=== PATIENT | female | born 1995 | race Caucasian/White ===

== ENCOUNTER → 2017-03-31 | Outpatient (REF) | payer OTHER ==
[~2017-03-31] MED LIST: FLOM5CAP PO; IBUP200C PO; NITR100C2; NORC1TAB4 PO
== END ==
LOC: M SFHCLERA 09:30
PROVIDERS: ATTEND Physician Assistant
DX: R30.0 Dysuria (principal)

== ENCOUNTER 2017-04-01 07:40 | Emergency (ER) | payer BC, OTHER ==
[~2017-04-01] VITALS: Ht 160 cm; Wt 73.6 kg
[2017-04-01 08:09] VITALS: BP_SYST 119
[2017-04-01] MEDS ORDERED: IBUP200C10 PO (08:13)
[2017-04-01] MEDS ORDERED: NITR100C2 (08:13)
[2017-04-01 08:58] LABS: CONTROL LINE UCG INT CTR LINE PRESENT
[2017-04-01] MEDS ORDERED: KETOROLAC 30 MG/ML VIAL (J1885) IV ONE (09:00)
[2017-04-01] MEDS ORDERED: ONDANSETRON 4MG/2ML VIAL (J2405) IV ONE (09:00)
[2017-04-01] MEDS ORDERED: NS 1,000 ML IV ONE (09:00)
[2017-04-01 09:12] LABS: BASO % 0.4 % (0.0-1.0); EOS # 0.1 K/mm3 (0.0-0.50); EOS % 0.7 % (0.0-3.0); LARGE UNSTAINED CELL % 0.4 % (0.0-4.0); LYMPH # 1.3 K/mm3 (1.5-6.5); LYMPH % 14.9 % (24.0-44.0); MEAN CORPUSCULAR HEMOGLOBIN 31.7 pg (27.0-33.0); MEAN CORPUSCULAR HGB CONC 33.9 g/dl (32.0-36.5); MEAN CORPUSCULAR VOLUME 93.7 fl (80.0-96.0); MONO # 0.5 K/mm3 (0.0-0.8); MONO % 6.1 % (0.0-5.0); NEUTROPHILS # 6.6 K/mm3 (1.8-7.7); NEUTROPHILS % 77.5 % (36.0-66.0); PLATELET COUNT, AUTOMATED 161 k/mm3 (150-450); RED CELL DISTRIBUTION WIDTH 12.9 % (11.5-14.5); WHITE BLOOD COUNT 8.6 K/mm3 (4.0-10.0)
[2017-04-01 09:21] LABS: ANION GAP 4 MEQ/L (8-16); BLOOD UREA NITROGEN 11 MG/DL (7-18); CALCIUM LEVEL 8.5 MG/DL (8.5-10.1); CARBON DIOXIDE LEVEL 26 MEQ/L (21-32); CHLORIDE LEVEL 106 MEQ/L (98-107); CREATININE FOR GFR 0.84 MG/DL (0.55-1.02); GLOMERULAR FILTRATION RATE > 60.0 (>60); GLUCOSE, FASTING 105 MG/DL (70-105); POTASSIUM SERUM 3.4 MEQ/L (3.5-5.1); SODIUM LEVEL 136 MEQ/L (136-145)
--- NOTE | 2017-04-01 10:21 | REP ---
CT ABDOMEN AND PELVIS WITHOUT IV CONTRAST: CT abdomen and pelvis performed without oral or IV contrast. Sagittal and coronal reconstruction images are performed. The visualized lung bases demonstrate no infiltrate. The liver, spleen, adrenals and pancreas are grossly unremarkable. Gallbladder is grossly unremarkable. Right kidney is grossly unremarkable. There is mild left hydroureteronephrosis caused by a 3 mm stone at the left ureterovesical junction. 2 mm intrarenal calculus is seen in the mid to lower left renal collecting system. There is no abdominal aortic aneurysm. I see no adenopathy or free air. No bowel wall thickening is seen. There is a tiny amount of free fluid in the pelvis which is likely physiologic in nature. No gross pelvic mass is seen. IMPRESSION: There is a 3 mm stone at the left ureterovesical junction causing mild left hydroureteronephrosis. Signed by Roberto Malcolm MD 04/01/2017 05:01 P
[2017-04-01] MEDS ORDERED: FLOM5CAP PO (10:37)
[2017-04-01] MEDS ORDERED: NORC1TAB4 PO (10:37)
[2017-04-01 10:43] VITALS: BP_DIAS 74
== END 2017-04-01 10:47 | disposition home or self-care (01) ==
LOC: M ED 08:38
DX: N13.2 Hydronephrosis with renal and ureteral calculous obstruction (principal); R10.32 Left lower quadrant pain; R11.0 Nausea; Z79.899 Other long term (current) drug therapy
CPT/HCPCS: 36415; 74176; 80048; 81001; 81025; 84703; 85025; 87086; 96374; 96375; 99284; J1885; J2405

== ENCOUNTER → 2017-04-10 | Outpatient (REF) | payer OTHER ==
[~2017-04-10] MED LIST changes: -IBUP200C PO; +IBUP200C10 PO
== END ==
LOC: M SFHCLERA 15:20
PROVIDERS: ATTEND Physician Assistant
DX: N20.0 Calculus of kidney (principal)

== ENCOUNTER → 2017-09-03 | Outpatient (REF) | payer OTHER | LOC: M SFHCLERA 10:29 | PROVIDERS: ATTEND Nurse Practitioner Family | DX: J02.9 Acute pharyngitis, unspecified (principal) ==

== ENCOUNTER → 2018-06-06 | Outpatient (CLI) | payer BC, OTHER | LOC: M LRY 11:47 | DX: M25.571 Pain in right ankle and joints of right foot (principal) | CPT/HCPCS: 73610 ==

== ENCOUNTER → 2018-11-27 | Outpatient (REF) | payer OTHER ==
[~2018-11-27] MED LIST changes: +FLOM0.4C39 PO; -FLOM5CAP PO; -IBUP200C10 PO; +IBUP200C25 PO
[2018-11-27 13:47] LABS: HEMATOCRIT 42.3 % (36.0-47.0); HEMOGLOBIN 13.8 g/dl (12.0-15.5); MEAN CORPUSCULAR HEMOGLOBIN 30.4 pg (27.0-33.0); MEAN CORPUSCULAR HGB CONC 32.6 g/dl (32.0-36.5); MEAN CORPUSCULAR VOLUME 93.2 fl (80.0-96.0); PLATELET COUNT, AUTOMATED 192 10^3/uL (150-450); RED BLOOD COUNT 4.54 10^6/uL (4.00-5.40); WHITE BLOOD COUNT 8.8 10^3/uL (4.0-10.0)
[2018-11-27 14:08] LABS: HCG, SERUM QUANTITATIVE 17100 MIU/ML; RUBELLA IgG QUALITATIVE IMMUNE (IMMUNE)
[2018-11-27 14:35] LABS: HIV 1&2 SCREEN CENTAUR NEGATIVE (NEGATIVE)
== END ==
LOC: M LAB REF 12:32
PROVIDERS: ATTEND Nurse Practitioner Women's Health
DX: Z32.01 Encounter for pregnancy test, result positive (principal); O36.80X0 Pregnancy with inconclusive fetal viability, not applicable or unspecified; Z3A.00 Weeks of gestation of pregnancy not specified

== ENCOUNTER → 2019-01-29 | Outpatient (REF) | payer OTHER ==
[~2019-01-29] MED LIST changes: -NORC1TAB4 PO; +NORC1TAB7 PO
== END ==
LOC: M SFHCLERA 15:04
PROVIDERS: ATTEND Physician Assistant
DX: R10.9 Unspecified abdominal pain (principal)

== ENCOUNTER 2019-02-12 12:57 | Observation (INO) | payer BC, OTHER ==
[~2019-02-12] VITALS: Ht 165.1 cm; Wt 77.2 kg
[2019-02-12] MEDS ORDERED: MULTTAB20 PO (13:06)
[2019-02-12] MEDS ORDERED: ACETAMINOPHEN TAB 650MG DOSE (2X325MG) PO ONE (13:30)
[2019-02-12 13:50] LABS: BASO % 0.1 % (0.0-1.0); EOS % 0.2 % (0.0-3.0); HEMATOCRIT 39.4 % (36.0-47.0); LYMPH # 1.7 10^3/uL (1.5-6.5); LYMPH % 16.2 % (24.0-44.0); MONO # 0.7 10^3/uL (0.0-0.8); MONO % 6.7 % (0.0-5.0); NEUTROPHILS # 8.2 10^3/uL (1.8-7.7); NEUTROPHILS % 76.5 % (36.0-66.0); PLATELET COUNT, AUTOMATED 164 10^3/uL (150-450); RED BLOOD COUNT 4.19 10^6/uL (4.00-5.40); WHITE BLOOD COUNT 10.7 10^3/uL (4.0-10.0)
[2019-02-12 14:26] LABS: ALT/SGPT 13 U/L (12-78); BILIRUBIN,DIRECT < 0.1 MG/DL (0.0-0.2); BILIRUBIN,TOTAL 0.3 MG/DL (0.2-1.0); BLOOD UREA NITROGEN 6 MG/DL (7-18); CALCIUM LEVEL 8.1 MG/DL (8.5-10.1); CARBON DIOXIDE LEVEL 23 MEQ/L (21-32); CHLORIDE LEVEL 109 MEQ/L (98-107); CREATININE FOR GFR 0.61 MG/DL (0.55-1.30); GLOMERULAR FILTRATION RATE > 60.0 (>60); GLUCOSE, FASTING 94 MG/DL (70-100); LIPASE 80 U/L (73-393); POTASSIUM SERUM 3.5 MEQ/L (3.5-5.1); SODIUM LEVEL 138 MEQ/L (136-145); TOTAL PROTEIN 6.4 GM/DL (6.4-8.2)
[2019-02-12] MEDS ORDERED: NS 1,000 ML IV ONE (14:45)
--- NOTE | 2019-02-12 15:21 | REP ---
RENAL ULTRASOUND: Real-time sonographic evaluation of kidneys performed. Kidneys are normal in size and echotexture, right kidney measuring 11.6 x 4.3 x 3.9 cm and left kidney 11.9 x 4.4 x 4.6 cm. There is mild left hydronephrosis. There is no right hydronephrosis. Possible 4 mm calculus is seen in the lower pole of the left kidney. No other abnormalities are seen. Urinary bladder is empty. IMPRESSION: Mild left hydronephrosis. Possible 4 mm intrarenal calculus lower pole left kidney. Electronically Signed by Roberto Malcolm MD 02/13/2019 02:54 P
[2019-02-12] MEDS ORDERED: PROMETHAZINE 25 MG SUPP PR ONE (15:30)
[2019-02-12] MEDS: ACETAMINOPHEN TAB 650MG DOSE (2X325MG) PO ONE ×2 (15:30→15:51)
[2019-02-12] MEDS ORDERED: AMPICILLIN SOD 2 GM in D5W 50 ML IV ONE (15:30)
--- NOTE | 2019-02-12 15:30 | REP ---
OB ULTRASOUND: Real-time sonographic evaluation of the gravid uterus is performed utilizing transabdominal technique. There is a single living intrauterine gestation, estimated gestational age 16 weeks 4 days based on LMP, EDC 07/26/2019. Today's measurements indicate appropriate growth. BPD 37 mm = 17 weeks 3 days, 79th percentile HC 136 mm = 17 weeks 0 days, 66th percentile AC 118 mm = 17 weeks, 4 days, 75th percentile FL 21 mm = 16 weeks 3 days, 43rd percentile HC/AC ratio 1.15, within normal range. Estimated weight 178 grams, 62nd percentile. Cervix is closed and measures 3.1 cm in length. heart rate 162 beats per minute. position is variable. Placenta posterior with no previa or abruption. Amniotic fluid within normal limits. No maternal adnexal region abnormality is seen. There appears to be a synechiae in the left uterine fundal region. Electronically Signed by Roberto Malcolm MD 02/13/2019 02:54 P
[2019-02-12] MEDS ORDERED: ACETAMINOPHEN SUSP DYE FREE 160 MG/5 ML UDC PO ONE (16:45)
[2019-02-12 18:33] VITALS: BP 139/75
[2019-02-12] MEDS: PERCOCET 5MG/325MG TAB PO PRN (18:39)
[2019-02-12] MEDS: NS 1,000 ML IV SCH ×2 (18:59→23:50)
[2019-02-12] MEDS: cefTRIAXone SOD 1 GM in D5W MINI-BAG PLUS 50 ML IV SCH (19:38)
[2019-02-12 20:00] VITALS: BP 105/54
--- NOTE | 2019-02-12 20:23 | HPEPDOC ---
[facility] Medical History & Physical Date of Admission February 12, 2019 History and Physical CHIEF COMPLAINT: Bleeding and pain @ 16w4d gestation HISTORY OF PRESENT ILLNESS: Woke this am with abdominal discomfort and cramping. Found blood in toilet. JULIAN 07/26/19. Unable to tolerate fluids throughout the day despite IV hydration and antiemetics. PAST MEDICAL HISTORY: 1. Renal calculi PAST SURGICAL HISTORY: 1. Tonsillectomy. 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 REVIEW OF SYSTEMS: CONSTITUTIONAL: Otherwise healthy HEENT: No complaints CARDIOVASCULAR: No complaints RESPIRATORY: Easy GASTROINTESTINAL: Nausea, vomiting today GENITOURINARY: SIUP @ 16+4. Reports history renal calculi SKIN: Intact MUSCULOSKELETAL: No complaints NEUROLOGICAL: Intact PSYCHIATRIC: Appropriate ENDOCRINE: Negative HOME MEDICATIONS: Please see below. PHYSICAL EXAMINATION: VITAL SIGNS: Temperature 97.3, pulse 89, respiratory rate 16, blood pressure 105/54, pulse oximetry 98% on room air. GENERAL APPEARANCE: Appears uncomfortable, resting in bed. HEENT: WNL CARDIOVASCULAR: HRR, normotensive LUNGS: Clear, respirations easy ABDOMEN: Soft. LLQ discomfort MUSCULOSKELETAL: Equal strength and motion EXTREMITIES: WNL NEUROLOGICAL: Intact PSYCHIATRIC: Appropriate LABORATORY DATA: See below. IMAGING: OB sono shows SIUP EGA 16w4d. FH 162. EFW 178gm, 62%. Posterior placenta, no previa or abruption. Normal fluid Renal scan shows mild left hydronephrosis with possible 4mm intrarenal calculus lower pole left kidney MICROBIOLOGY: Please see below. ASSESSMENT: Renal calculi, r/o pyelonephritis . PLAN: 1. Observation status 2: IV hydration with antibiotic coverage 3: Management of nausea, vomiting and pain 4. Strain urine Vital Signs Vital Signs Date Time Temp Pulse Resp B/P (MAP) Pulse Ox O2 Delivery O2 Flow Rate FiO2 02/12/19 20:00 97.3 89 16 105/54 (71) 98 02/12/19 16:01 Room Air Laboratory Data Labs 24H Laboratory Tests 2 02/12/19 13:29: Immature Granulocyte % (Auto) 0.3, White Blood Count 10.7H, Red Blood Count 4.19, Hemoglobin 13.0, Hematocrit 39.4, Mean Corpuscular Volume 94.0, Mean Corpuscular Hemoglobin 31.0, Mean Corpuscular Hemoglobin Concent 33.0, Red Cell Distribution Width 13.2, Platelet Count 164, Neutrophils (%) (Auto) 76.5H, Lymphocytes (%) (Auto) 16.2L, Monocytes (%) (Auto) 6.7H, Eosinophils (%) (Auto) 0.2, Basophils (%) (Auto) 0.1, Neutrophils # (Auto) 8.2H, Lymphocytes # (Auto) 1.7, Monocytes # (Auto) 0.7, Eosinophils # (Auto) 0.0, Basophils # (Auto) 0.0, Nucleated Red Blood Cells % (auto) 0.0 02/12/19 13:31: Urine Color REDH, Urine Appearance CLOUDYH, Urine pH 6.0, Urine Specific [place] 1.019, Urine Protein 2+H, Urine Glucose (UA) NEGATIVE, Urine Ketones TRACEH, Urine Blood 3+H, Urine Nitrite NEGATIVE, Urine Bilirubin NEGATIVE, Urine Urobilinogen 0.2, Urine Leukocyte Esterase NEGATIVE, Urine WBC (Auto) TNTCH, Urine RBC (Auto) TNTCH, Urine Hyaline Casts (Auto) 0, Urine Bacteria (Auto) NEGATIVE, Urine Squamous Epithelial Cells 6, Urine Mucus (Auto) SMALL, Urine Sperm (Auto) 02/12/19 13:39: Anion Gap 6L, Glomerular Filtration Rate > 60.0, Calcium Level 8.1L, Aspartate Amino Transf (AST/SGOT) 12, Alanine Aminotransferase (ALT/SGPT) 13, Alkaline Phosphatase 62, Total Bilirubin 0.3, Direct Bilirubin < 0.1, Total Protein 6.4, Albumin 3.0L, Albumin/Globulin Ratio 0.88L, Lipase 80 CBC/BMP Laboratory Tests 02/12/19 13:29 Red Blood Count 4.19, Mean Corpuscular Volume 94.0, Mean Corpuscular Hemoglobin 31.0, Mean Corpuscular Hemoglobin Concent 33.0, Red Cell Distribution Width 13.2, Neutrophils (%) (Auto) 76.5 H, Lymphocytes (%) (Auto) 16.2 L, Monocytes (%) (Auto) 6.7 H, Eosinophils (%) (Auto) 0.2, Basophils (%) (Auto) 0.1, Neutrophils # (Auto) 8.2 H, Lymphocytes # (Auto) 1.7, Monocytes # (Auto) 0.7, Eosinophils # (Auto) 0.0, Basophils # (Auto) 0.0 02/12/19 13:39 Microbiology Microbiology 02/12/19 Urine Culture, Received Pending Home Medications Scheduled No122/Iron/Folic Acid ( Multi Tablet) 1 Each Tablet, 1 TAB PO DAILY Allergies Coded Allergies: No Known Allergies (Unverified , 04/01/17) A-FIB/CHADSVASC A-FIB History Current/History of A-Fib/PAF?: No Valentina Spangler CNM February 12, 2019 20:12
[2019-02-12] MEDS: ONDANSETRON 4MG/2ML VIAL (J2405) IV PRN (23:50)
[2019-02-13] VITALS: BP 115/70
[2019-02-13] MEDS: NS 1,000 ML IV SCH ×4 (04:30→18:35)
[2019-02-13 07:12] LABS: BASO % 0.2 % (0.0-1.0); EOS % 0.1 % (0.0-3.0); HEMATOCRIT 32.4 % (36.0-47.0); LYMPH # 1.8 10^3/uL (1.5-6.5); LYMPH % 17.3 % (24.0-44.0); MEAN CORPUSCULAR HEMOGLOBIN 30.1 pg (27.0-33.0); MEAN CORPUSCULAR HGB CONC 32.1 g/dl (32.0-36.5); MEAN CORPUSCULAR VOLUME 93.9 fl (80.0-96.0); MONO # 0.8 10^3/uL (0.0-0.8); MONO % 7.5 % (0.0-5.0); NEUTROPHILS # 7.9 10^3/uL (1.8-7.7); NEUTROPHILS % 74.5 % (36.0-66.0); PLATELET COUNT, AUTOMATED 139 10^3/uL (150-450); RED BLOOD COUNT 3.45 10^6/uL (4.00-5.40); WHITE BLOOD COUNT 10.6 10^3/uL (4.0-10.0)
[2019-02-13 07:26] LABS: HEMOGLOBIN 10.4 g/dl (12.0-15.5)
[2019-02-13 07:44] LABS: ALBUMIN 2.3 GM/DL (3.2-5.2); ALT/SGPT 10 U/L (12-78); BILIRUBIN,TOTAL 0.3 MG/DL (0.2-1.0); BLOOD UREA NITROGEN 4 MG/DL (7-18); CALCIUM LEVEL 7.6 MG/DL (8.5-10.1); CARBON DIOXIDE LEVEL 24 MEQ/L (21-32); CHLORIDE LEVEL 113 MEQ/L (98-107); GLOMERULAR FILTRATION RATE > 60.0 (>60); GLUCOSE, FASTING 80 MG/DL (70-100); POTASSIUM SERUM 3.6 MEQ/L (3.5-5.1); SODIUM LEVEL 142 MEQ/L (136-145); TOTAL PROTEIN 4.7 GM/DL (6.4-8.2)
[2019-02-13 08:00] VITALS: BP 109/64
[2019-02-13] MEDS: ACETAMINOPHEN TAB 650MG DOSE (2X325MG) PO PRN (08:10)
[2019-02-13] MEDS: PERCOCET 5MG/325MG TAB PO PRN (08:48)
--- NOTE | 2019-02-13 10:23 | NUR ---
Progress note S: left flank pain comes intermittently. Currently comfortable. O: CW=669/70 P=80 Tc=97.6 Tm=99.8 NAD Abd: NT, gravid FHT: + by bedside doppler ext: NT A/P 23 yo at 16+ weeks with left nephrolithiasis, ans suspected pyelonephritis Continue Ceftriaxone Urine culture pending pain management as needed Can consult urology if condition doesn't resolve with conservative measures Jovan Hanson MD
[2019-02-13 16:00] VITALS: BP 122/63
[2019-02-13 20:00] VITALS: BP 119/59
[2019-02-13] MEDS: cefTRIAXone SOD 1 GM in D5W MINI-BAG PLUS 50 ML IV SCH (20:26)
[2019-02-13] MEDS: ONDANSETRON 4MG/2ML VIAL (J2405) IV PRN (20:28)
[2019-02-13] MEDS: DOCUSATE SODIUM 100 MG CAP PO SCH (22:00)
[2019-02-14] VITALS: BP 117/69
[2019-02-14] MEDS: ACETAMINOPHEN TAB 650MG DOSE (2X325MG) PO PRN ×2 (00:38→08:17)
[2019-02-14] MEDS: NS 1,000 ML IV SCH ×2 (00:38→05:18)
[2019-02-14 08:14] VITALS: BP 117/63
[2019-02-14] MEDS: DOCUSATE SODIUM 100 MG CAP PO SCH (08:16)
--- NOTE | 2019-02-14 09:33 | NUR ---
Progress note S: No pain overnight O: DI=379/63 P=76 T=99.2 NAD Abd: NT, gravid no CVA tenderness urine culture negative A/P 23 yo at 16 weeks with symptomatic nephrolithiasis, possible pyelonephritis Plan discharge today Continue antibiotic for possible pyelonephritis Rx Percocet in case renal pain occurs [place] 02/23 as scheduled Jovan Hanson MD
[2019-02-14] MEDS ORDERED: OXYC1TAB23 PO (09:46)
[2019-02-14] MEDS ORDERED: BACT800T5 PO (09:49)
--- NOTE | 2019-02-15 07:56 | DSES ---
DATE OF ADMISSION: 02/12/2019 DATE OF DISCHARGE: 02/14/2019 HISTORY: 23-year-old at 16 and 4/7 weeks gestation who presented to the emergency room (ER) with abdominal discomfort and cramping. She found blood in the toilet. She has had vomiting and was not able to tolerate fluids throughout the day. She had pain over the area of her left flank as well. Her medical history is significant for history of kidney stones. Her care is through [facility] at [facility]. HOSPITAL COURSE: The patient was evaluated in the emergency room at [facility]. She was diagnosed with left renal stone on ultrasound. She did not have significant hydronephrosis. Her pain was extreme and she was unable to keep down oral hydration. Decision was made to admit her for pain management as well as antiemetics. She was given IV fluids and pain management. Her pain gradually improved spontaneously. She was able to tolerate oral intake. She was treated with IV Rocephin for possible pyelonephritis at the same time. Her condition continued to improve. On hospital day #3, she was deemed stable for discharge. ADMISSION DIAGNOSES: 16 plus weeks. Symptomatic nephrolithiasis. Possible left pyelonephritis. DISCHARGE DIAGNOSES: 16 plus weeks. Symptomatic nephrolithiasis. Possible left pyelonephritis. DISPOSITION: The patient will have pain management at home in case the pain recurs. She will be treated with oral Keflex at home to finish a course of antibiotics. She will followup with [facility] on 02/23/2019 as scheduled. She will call if symptoms worsen.
== END 2019-02-14 11:20 | disposition home or self-care (01) ==
LOC: M ED 12:57 → M ED INP 17:48 → M PED 18:20
PROVIDERS: ADMIT Advanced Practice Midwife; ATTEND Advanced Practice Midwife
DX: O26.832 Pregnancy related renal disease, second trimester (principal); N20.0 Calculus of kidney; O23.02 Infections of kidney in pregnancy, second trimester; N10 Acute pyelonephritis; Z3A.16 16 weeks gestation of pregnancy
CPT/HCPCS: 36415; 76775; 76811; 80048; 80053; 80076; 81001; 83690; 85025; 86850; 86900; 86901; 87086; 96361; 96365; 96374; 96375; 96376; 99284; J0696; J2405

== ENCOUNTER → 2019-07-01 | Outpatient (REF) | payer BC, OTHER ==
[~2019-07-01] MED LIST changes: +BACT800T5 PO; +MULTTAB20 PO; +OXYC1TAB23 PO
== END ==
LOC: M LAB REF 12:34
PROVIDERS: ATTEND Nurse Practitioner Women's Health
DX: Z36.85 Encounter for antenatal screening for Streptococcus B (principal)

== ENCOUNTER 2019-07-03 13:30 | Outpatient (CLI) | payer BC, OTHER ==
[~2019-07-03] VITALS: Ht 162.6 cm; Wt 92.4 kg
[2019-07-03 14:03] VITALS: BP 122/77
[2019-07-03 14:21] VITALS: BP 131/74
[2019-07-03 14:37] VITALS: BP 124/72
[2019-07-03 14:51] VITALS: BP 130/83
[2019-07-03 15:06] VITALS: BP 129/77
== END 2019-07-03 15:25 | disposition home or self-care (01) ==
LOC: M LDO 13:30
PROVIDERS: ATTEND Specialist
DX: O26.853 Spotting complicating pregnancy, third trimester (principal); O26.893 Other specified pregnancy related conditions, third trimester; R03.0 Elevated blood-pressure reading, without diagnosis of hypertension; Z3A.36 36 weeks gestation of pregnancy
CPT/HCPCS: 59025; G0378; G0463

== ENCOUNTER → 2019-07-16 | Outpatient (REF) | payer OTHER | LOC: M LAB REF 12:47 | PROVIDERS: ATTEND Nurse Practitioner Women's Health | DX: Z34.03 Encounter for supervision of normal first pregnancy, third trimester (principal); Z3A.00 Weeks of gestation of pregnancy not specified ==

== ENCOUNTER 2019-07-17 04:03 | Inpatient (IN) | payer BC, OTHER ==
[2019-07-17] VITALS (20 sets, daily range): BP systolic 110–165; BP diastolic 67–98
[~2019-07-17] VITALS: Ht 162.6 cm; Wt 94.1 kg
[2019-07-17] MEDS ORDERED: LACTATED RINGER'S 1000 ML IV STA (04:36)
[2019-07-17] MEDS ORDERED: LR 1,000 ML IV SCH (04:36)
[2019-07-17] MEDS ORDERED: OXYTOCIN 30 UNITS IN 0.9% NaCl 500ML IV BAG (J2590) As Ordered ONE (04:47)
--- NOTE | 2019-07-17 04:48 | HPEPDOC ---
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: No pertinent history Past Medical History Medical History Kidney stones Surgical History: Denies/None Family History Significant Family History: No pertinent family hx Social History Marital Status: Single Family situation: Spouse/partner home Psychosocial History: No pertinent psych hx * Smoker: non-smoker Alcohol: Denies Drugs: denies Abuse Violence Screening Have you been hit/kicked/slapp: No Have you been sexually assault: No Imunizations Tdap status: current Allergies Coded Allergies: No Known Allergies (Unverified , 04/01/17) Medications Scheduled No122/Iron/Folic Acid ( Multi Tablet) 1 Each Tablet, 1 TAB PO DAILY Physical Examination Physical Examination GENERAL: Alert and oriented times three. Coping well BREAST: . ABDOMEN: Gravid and non-tender to touch. FETUS: Is vertex (VTX) by sterile vaginal examination (SVE), fetus is vertex (VTX) by Gary. HEART RATE: Regular rate and rhythm. LUNGS: Clear to auscultation (CTA). EXTREMITIES: No edema. No clonus. Deep tendon reflexes (DTRs) + to. Pertinent Laboratoy Data Blood Type: A+ RBC Antibody Screen: Negative HIV: Negative Hepatitis B: Negative Hepatitis C: Negative Rapid Plasma Reagin: Nonreactive Rubella: Immune Chlamydia/Gonorrhea: Negative Group B Streptococcus: Negative Quad Screen Test: Declined Glucose Tolerance Test: 134 Anatomy Ultrasound Ultrasound Date: February 25, 2019 Placenta Location: Posterior Normal Anatomy: Yes Placenta Previa: No Estimated Weight (grams): 285 Other Ultrasounds 12/03/2018, dating 6 weeks 3 days JULIAN 07/26/2019 Steroid Therapy Steroid Therapy: No Vaginal Examination Dilation: 8 cm Effacement: 100% Station: 0 Cervical Consistency: Soft Cervical Position: Middle Presentation: Cephalic presentation Assessment Heart Rate (FHR): 145 Variability: Moderate Accelerations: Positive Decelerations: None Tocometer Contractions: Yes Frequency: regular, every 2-5 min. Duration: greater than 60 seconds Strength: palpated as moderate Assessment/Plan Assessment Merary is a 24-year-old (G) 1 para (P) 1 -0 -00 at 38 + 5 weeks by 6- week ultrasound. Presents to Labor and Delivery (L&D) with reports of contractions throughout the day. Denies loss of fluid or active bleeding. Fetus is active. Patient has received care with [facility] but was planning to deliver at [facility].. Plan Admit and orient. 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 Diet: Clear liquids. Group B Streptococcus (GBS), negative. Labs and intravenous (IV) per unit protocol. Counseled on Pitocin and induction of labor (IOL). Lactated Ringers (LR): Bolus. 500 mL, then at 125 mL/hr. Patient plans to labor ad arlene. Anticipate, normal spontaneous vaginal delivery. C-S as appropriate. Valentina Spangler CNM Jul 17, 2019 04:48
[2019-07-17 04:55] LABS: HEMOGLOBIN 11.9 g/dl (12.0-15.5); MEAN CORPUSCULAR HEMOGLOBIN 29.2 pg (27.0-33.0); MEAN CORPUSCULAR HGB CONC 32.2 g/dl (32.0-36.5); MEAN CORPUSCULAR VOLUME 90.9 fl (80.0-96.0); PLATELET COUNT, AUTOMATED 185 10^3/uL (150-450); RED BLOOD COUNT 4.07 10^6/uL (4.00-5.40); WHITE BLOOD COUNT 13.7 10^3/uL (4.0-10.0)
[2019-07-17] MEDS ORDERED: FENTANYL 2MCG/ML ROPIVACAINE 0.2% IN 0.9% NACL 100ML IVBAG As Ordered ONE (05:26)
[2019-07-17] MEDS ORDERED: EPIDURAL/PCA KEYS XX PRN (06:17)
[2019-07-17] MEDS ORDERED: ePHEDrine SULFATE 25 MG/5 ML(5MG/ML) SYRINGE IV PRN (06:17)
[2019-07-17] MEDS ORDERED: FENTANYL/ROPIVACAINE/NACL BAG 100 ML EPIDURAL SCH (06:17)
[2019-07-17] MEDS ORDERED: EPIDURAL COMMENT XX SCH (06:17)
[2019-07-17] MEDS ORDERED: NALOXONE INJ 0.4 MG/1 ML VIAL (J2310) IV PRN (06:17)
[2019-07-17] MEDS ORDERED: REFRIGERATOR IV KEYS XX PRN (06:17)
[2019-07-17] MEDS ORDERED: diphenhydrAMINE INJ 50MG/ML VIAL (J1200) IV PRN (06:17)
[2019-07-17] MEDS ORDERED: LACTATED RINGER'S 1000 ML IV PRN (06:17)
[2019-07-17] MEDS ORDERED: ONDANSETRON 4MG/2ML VIAL (J2405) IV PRN (06:17)
[2019-07-17] MEDS ORDERED: OXYTOCIN DRIP 30 UNITS in IV 1 EA IV SCH (08:05)
--- NOTE | 2019-07-17 08:12 | DNPDOC ---
[facility] Delivery Note Delivery Note DATE OF DELIVERY: 07/17/2019 PREDELIVERY DIAGNOSIS: 38-4/7 weeks' gestation and labor. POST DELIVERY DIAGNOSIS: Delivered. PROCEDURE:. Spontaneous vaginal delivery. Provider: Valentina Spangler CNM ANESTHESIA: Epidural. ESTIMATED BLOOD LOSS:, 100 mL. FINDINGS: 7 pound. 5 ounce, 3320 g female , Score, 9/, 9, no nuchal cord. DELIVERY SUMMARY: Patient is a 24-year-old 1 now para 1 -0 -0-1 who was admitted to labor and delivery for active labor. She utilized an epidural for labor coping. Spontaneous rupture of membranes, clear fluid at 0641. Fully dilated at 0644. Viable female child delivered MONICA at 0730. Spontaneous respirations with stimulation. Transitioned on maternal abdomen. Cord doubly clamped and cut after pulsation ceased by the father of the baby under my direction. Placenta Joiner and intact with a three-vessel cord at 0739. Fundus firmed with massage and IV Pitocin bolus. Estimated blood loss 100 mL. First- degree perineal laceration repaired in the usual fashion with 3-0 Vicryl Rapide. Sponge, sharp and instrument count correct. Parents are naming their daughter, Maria Luz. Valentina Spangler CNM Jul 17, 2019 08:12
[2019-07-17] MEDS ORDERED: IBUPROFEN 600 MG TAB PO PRN (08:15)
[2019-07-17] MEDS ORDERED: ACETAMINOPHEN TAB 650MG DOSE (2X325MG) PO PRN (08:15)
[2019-07-17] MEDS ORDERED: MOM 30ML SUSPENSION UDC PO PRN (08:15)
[2019-07-17] MEDS ORDERED: DIBUCAINE 1% OINTMENT 30GM TOP PRN (08:15)
[2019-07-17] MEDS ORDERED: RHOGAM 300 MCG (1500 IU) INJ (J2790) IM SCH (08:15)
[2019-07-17] MEDS ORDERED: ACETAMINOPHEN 500 MG TAB PO PRN (08:15)
[2019-07-17] MEDS ORDERED: MEASLES,MUMPS,RUBELLA VACCINE INJ (MMR-II) (90707) SC SCH (08:15)
[2019-07-17] MEDS ORDERED: DOCUSATE SODIUM 100 MG CAP PO PRN (08:15)
[2019-07-17] MEDS ORDERED: METHYLERGONOVINE MALEATE 0.2 MG TAB PO PRN (08:15)
[2019-07-17] MEDS: PRENATAL VITAMINS CHEWABLE TABLET PO SCH (09:00)
[2019-07-17] MEDS: IBUPROFEN 800 MG TAB PO PRN (11:36)
[2019-07-18] MEDS: IBUPROFEN 800 MG TAB PO PRN (01:30)
[2019-07-18 05:15] VITALS: BP 118/77
[2019-07-18] MEDS: PRENATAL VITAMINS CHEWABLE TABLET PO SCH (08:53)
== END 2019-07-18 16:00 | disposition home or self-care (01) | DRG 560 ==
LOC: M LDO 04:03 → M LDI 04:32 → M OBS 10:18
PROVIDERS: ADMIT Advanced Practice Midwife; ATTEND Advanced Practice Midwife
PROC: 10E0XZZ Delivery of Products of Conception, External Approach (ICD-10-PCS; principal; 2019-07-17)
PROC: 0HQ9XZZ Repair Perineum Skin, External Approach (ICD-10-PCS; 2019-07-17)
DX: O70.0 First degree perineal laceration during delivery (principal); Z37.0 Single live birth; Z3A.38 38 weeks gestation of pregnancy

== ENCOUNTER 2020-06-13 10:22 | Emergency (ER) | payer BC, OTHER ==
[~2020-06-13] VITALS: Ht 162.6 cm; Wt 75.0 kg
[2020-06-13 11:55] LABS: HEMATOCRIT 46.6 % (36.0-47.0); MEAN CORPUSCULAR HEMOGLOBIN 29.9 pg (27.0-33.0); MEAN CORPUSCULAR HGB CONC 32.2 g/dl (32.0-36.5); PLATELET COUNT, AUTOMATED 235 10^3/uL (150-450); RED BLOOD COUNT 5.01 10^6/uL (4.00-5.40); WHITE BLOOD COUNT 11.9 10^3/uL (4.0-10.0)
[2020-06-13 12:21] LABS: HCG, SERUM QUALITATIVE NEGATIVE (NEGATIVE)
[2020-06-13 12:23] LABS: AMPHETAMINES LEVEL URINE NEGATIVE (NEGATIVE); BARBITURATES URINE NEGATIVE (NEGATIVE); BENZODIAZEPINES URINE NEGATIVE (NEGATIVE); CANNABINOIDS URINE NEGATIVE (NEGATIVE); COCAINE METABOLITE URINE NEGATIVE (NEGATIVE); METHADONE URINE NEGATIVE (NEGATIVE); OPIATES URINE NEGATIVE (NEGATIVE); PHENCYCLIDINE URINE NEGATIVE (NEGATIVE)
[2020-06-13 12:35] LABS: ACETAMINOPHEN LEVEL < 2.0 UG/ML (10.0-30.0); ALBUMIN 4.7 GM/DL (3.2-5.2); ALT/SGPT 16 U/L (12-78); BILIRUBIN,DIRECT 0.1 MG/DL (0.0-0.2); BILIRUBIN,TOTAL 0.5 MG/DL (0.2-1.0); BLOOD UREA NITROGEN 16 MG/DL (7-18); CALCIUM LEVEL 9.5 MG/DL (8.5-10.1); CARBON DIOXIDE LEVEL 25 MEQ/L (21-32); CHLORIDE LEVEL 106 MEQ/L (98-107); CREATININE FOR GFR 0.83 MG/DL (0.55-1.30); ETHYL ALCOHOL (ETHANOL) < 0.003 % (0.000-0.010); GLOMERULAR FILTRATION RATE > 60.0 (>60); GLUCOSE, FASTING 124 MG/DL (70-100); POTASSIUM SERUM 3.9 MEQ/L (3.5-5.1); SALICYLATE LEVEL < 1.7 MG/DL (5.0-30.0); SODIUM LEVEL 137 MEQ/L (136-145)
[2020-06-13 14:32] VITALS: BP 122/71
== END 2020-06-13 14:34 | disposition home or self-care (01) ==
LOC: M ED 10:22
DX: Z04.6 Encounter for general psychiatric examination, requested by authority (principal); F32.9 Major depressive disorder, single episode, unspecified
CPT/HCPCS: 36415; 80048; 80076; 80307; 84443; 84703; 85027; 99284; G0480

== ENCOUNTER 2021-07-09 22:49 | Emergency (ER) | payer BC, OTHER, MEDICAID ==
[~2021-07-09] VITALS: Ht 162.6 cm; Wt 78.4 kg
[2021-07-09] MEDS ORDERED: MILKSUS3 PO (22:57)
[2021-07-09] MEDS ORDERED: ACET-683 PO (22:57)
[2021-07-09] MEDS ORDERED: IBUP1TAB6 PO (22:57)
[2021-07-09] MEDS ORDERED: FLOM0.4C39 PO (22:57)
--- NOTE | 2021-07-10 01:09 | REPVR ---
PROCEDURE INFORMATION: Exam: CT Abdomen And Pelvis Without Contrast Exam date and time: 07/09/2021 11:40 PM Age: 25 years old Clinical indication: Abdominal pain; Flank; Right; Additional info: Possible kidney stone TECHNIQUE: Imaging protocol: Computed tomography of the abdomen and pelvis without contrast. Radiation optimization: All CT scans at this facility use at least one of these dose optimization techniques: automated exposure control; mA and/or kV adjustment per patient size (includes targeted exams where dose is matched to clinical indication); or iterative reconstruction. COMPARISON: CT ABD PELVIS W/O CONTRAST 04/01/2017 9:40 AM Study limitations: Evaluation for mass, inflammatory change, including bowel wall/fold thickening, viscera, and vasculature, is suboptimal without contrast. The uppermost aspect of the hepatic dome is not included. FINDINGS: LUNG BASES: No infiltrate or effusion. VASCULAR: No abdominoaortic aneurysm or retroperitoneal hematoma. Punctate calcification noted along the right common iliac artery. PERITONEAL : No free air. Trace amount of free fluid within the pelvis. GI: No hiatal hernia. The stomach is slightly distended with ingested material and gas. The stomach is not sufficiently distended to evaluate wall thickening. No appearance of a bowel obstruction. Evaluation for bowel wall and fold thickening is compromised on this study, secondary to lack of any contrast. Multiple mildly prominent mesenteric lymph nodes are seen. These are nonspecific but mild mesenteric adenitis or reactive nodes secondary to mild gastroenteritis could be correlated with any underlying GI symptoms. No focal mesenteric inflammation is seen. Scattered fecal material and gas within portions of the colon and rectum. There is some fluid within the colon. This could be correlated with symptoms and causes of diarrhea. No evidence of acute diverticulitis. The appendix does not appear inflamed. HEPATOBILIARY, PANCREAS, SPLEEN: The uppermost aspect of the liver is not included. Visualized liver is within normal limits for attenuation. No calcified gallstones. No pancreatic inflammation. Spleen not enlarged. ADRENALS, KIDNEYS, BLADDER, RETROPERITONEAL: Adrenals within normal limits. Moderately severe hydronephrosis of the right kidney. Within the right proximal ureter just distal to the right ureteropelvic junction, there is a 3.9 x 4 mm obstructive calculus. No other ureteral calculi bilaterally. There are additional nonobstructive bilateral renal calculi. Evaluation of renal parenchyma is limited without contrast. The urinary bladder is not sufficiently distended for complete diagnostic evaluation. No perivesical stranding. Small nonspecific para-aortic retroperitoneal lymph nodes are noted. PELVIC: Evaluation of pelvic viscera and adnexa is limited secondary to lack of contrast differentiation. Slightly heterogeneous retroverted uterus. Gas within the vagina may be iatrogenic. There may be some follicular/cystic changes within the ovaries possibly up to 3.3 cm on the left. If there are symptoms related to the pelvis, consider ultrasound for confirmation and better characterization. MUSCULOSKELETAL: Tiny fat containing umbilical hernia. Mild curvature of the spine may be positional or related to mild scoliosis. IMPRESSION: Moderately severe hydronephrosis of the right kidney, secondary to a 3.9 x 4 mm calculus within the proximal right ureter. Other genitourinary findings discussed above. Trace amount of free fluid within the pelvis. The cause of this is uncertain but this could be physiologic. There may be follicular/cystic changes within the ovaries as discussed above. Nonspecific gastrointestinal findings to be correlated with any GI symptoms as discussed above. Other incidental findings discussed above. Electronically signed by: Serjio Domingo On 07/10/2021 01:08:47 AM
[2021-07-10 03:20] LABS: BASO % 0.2 % (0.0-1.0); EOS % 0.3 % (0.0-3.0); HEMATOCRIT 40.5 % (36.0-47.0); HEMOGLOBIN 13.4 g/dl (12.0-15.5); LYMPH # 1.4 10^3/uL (1.5-5.0); LYMPH % 15.8 % (24.0-44.0); MEAN CORPUSCULAR HEMOGLOBIN 30.7 pg (27.0-33.0); MEAN CORPUSCULAR HGB CONC 33.1 g/dl (32.0-36.5); MEAN CORPUSCULAR VOLUME 92.7 fl (80.0-96.0); MONO # 0.9 10^3/uL (0.0-0.8); MONO % 9.9 % (2.0-8.0); NEUTROPHILS # 6.5 10^3/uL (1.5-8.5); NEUTROPHILS % 73.5 % (36.0-66.0); PLATELET COUNT, AUTOMATED 198 10^3/uL (150-450); RED BLOOD COUNT 4.37 10^6/uL (4.00-5.40); WHITE BLOOD COUNT 8.9 10^3/uL (4.0-10.0)
[2021-07-10] MEDS ORDERED: KETOROLAC 30 MG/ML 1ML VIAL IV ONE (03:25)
[2021-07-10 03:45] LABS: CALCIUM LEVEL 8.9 MG/DL (8.5-10.1); CREATININE FOR GFR 1.33 MG/DL (0.55-1.30); GLOMERULAR FILTRATION RATE 51.7 (>60)
[2021-07-10] MEDS ORDERED: ONDANSETRON 4MG/2ML VIAL As Ordered ONE (05:07)
[2021-07-10] MEDS ORDERED: ONDANSETRON 4MG/2ML VIAL IV ONE (05:10)
[2021-07-10] MEDS ORDERED: METOCLOPRAMIDE INJ 10MG/2ML VIAL (J2765 PER 1) IV ONE (05:35)
[2021-07-10 06:00] VITALS: BP 124/78
[2021-07-10] MEDS ORDERED: KETO10TAB PO (06:25)
[2021-07-10] MEDS ORDERED: REGL10TA6 PO (06:27)
--- NOTE | 2021-07-12 10:32 | ED PDOC ---
Post-Departure Follow-Up radiology report faxed to Lucita Zacarias MD Jul 12, 2021 10:32
== END 2021-07-10 06:39 | disposition home or self-care (01) ==
LOC: M ED 22:49
DX: N20.1 Calculus of ureter (principal); Z79.899 Other long term (current) drug therapy; Z98.890 Other specified postprocedural states
CPT/HCPCS: 74176; 80048; 81001; 85025; 96374; 96375; 99284; J1885; J2405; J2765

== ENCOUNTER → 2021-07-27 | Outpatient (CLI) | payer BC, OTHER, MEDICAID ==
[~2021-07-27] MED LIST changes: +ACET-683 PO; +IBUP1TAB6 PO; +KETO10TAB PO; +MILKSUS3 PO; +REGL10TA6 PO
--- NOTE | 2021-07-27 13:47 | REP ---
INDICATION: CALCULUS OF KIDNEY. COMPARISON: None. FINDINGS: KUB shows the intestinal gas pattern to be nonspecific. The organ silhouettes insofar as delineated are unremarkable. There is no evidence of free intraperitoneal air. Bowel content obscures the right nephric silhouette. No definite abnormal calcifications are identified. IMPRESSION: The abnormal calcification seen in the proximal right ureter on the CT exam of 07/09/2021 is not identified by today's plain radiographic evaluation. Additionally, the previously reported bilateral nonobstructing nephroliths are not identified either. If clinically relevant follow-up with stone protocol CT for an exact comparison if clinically relevant. <Electronically signed by Sergio Gonzales > 07/27/21 [id number]
[2021-07-27 18:03] LABS: APPEARANCE, URINE CLEAR (CLEAR); BACTERIA, URINE AUTO NEGATIVE (NEGATIVE); BILIRUBIN, URINE AUTO NEGATIVE (NEGATIVE); BLOOD, URINE BLOOD NEGATIVE (NEGATIVE); COLOR, URINE YELLOW (YELLOW); GLUCOSE, URINE (UA) AUTO NEGATIVE (NEGATIVE); KETONE, URINE AUTO NEGATIVE (NEGATIVE); LEUKOCYTE ESTERASE, URINE AUTO TRACE (NEGATIVE); MUCUS, URINE SMALL (NEGATIVE); NITRITE, URINE AUTO NEGATIVE (NEGATIVE); PROTEIN, URINE AUTO NEGATIVE (NEGATIVE); RBC, URINE AUTO 1 /HPF (0-3); SPECIFIC GRAVITY URINE AUTO 1.016 (1.002-1.035); SQUAMOUS EPITHELIAL CELL UR AU 2 /HPF (0-6); UROBILINOGEN, URINE AUTO 0.2 mg/dL (0.0-2.0); WBC, URINE AUTO 2 /HPF (0-3)
== END ==
LOC: M PLAIMG 12:22
PROVIDERS: ATTEND Nurse Practitioner Women's Health
DX: N20.0 Calculus of kidney (principal)

== ENCOUNTER → 2023-05-12 | Outpatient (CLI) | payer OTHER ==
[2023-05-12 17:32] LABS: HEMATOCRIT 37.6 % (36.0-47.0); HEMOGLOBIN 11.9 g/dl (12.0-15.5); MEAN CORPUSCULAR HEMOGLOBIN 29.8 pg (27.0-33.0); MEAN CORPUSCULAR HGB CONC 31.6 g/dl (32.0-36.5); MEAN CORPUSCULAR VOLUME 94.2 fl (80.0-96.0); PLATELET COUNT, AUTOMATED 205 10^3/uL (150-450); RED BLOOD COUNT 3.99 10^6/uL (4.00-5.40); WHITE BLOOD COUNT 9.9 10^3/uL (4.0-10.0)
[2023-05-12 18:10] LABS: HIV 1&2 SCREEN NEGATIVE (NEGATIVE)
[2023-05-12 18:17] LABS: HEPATITIS C VIRUS ABY INDEX 0.12 INDEX (<0.8)
[2023-05-12 19:30] LABS: GC DNA AMPLIFICATION NEGATIVE (NEGATIVE)
== END ==
LOC: M PLALAB 15:27
PROVIDERS: ATTEND Advanced Practice Midwife
DX: Z34.81 Encounter for supervision of other normal pregnancy, first trimester (principal)

== ENCOUNTER → 2023-06-12 | Outpatient (CLI) | payer OTHER | LOC: M WHC 16:05 | PROVIDERS: ATTEND Advanced Practice Midwife | DX: O09.33 Supervision of pregnancy with insufficient antenatal care, third trimester (principal); Z3A.35 35 weeks gestation of pregnancy ==

== ENCOUNTER 2024-09-27 14:07 | Emergency (ER) | payer OTHER ==
[~2024-09-27] VITALS: Ht 162.6 cm; Wt 88.8 kg
[2024-09-27 14:13] VITALS: BP 133/79; TEMP 98.1; O2SAT 98
[2024-09-27] MEDS ORDERED: UNIS25TA3 PO (14:49)
== END 2024-09-27 14:32 | disposition admitted as inpatient to this hospital (09) ==
LOC: M ED 14:07
DX: Z53.21 Procedure and treatment not carried out due to patient leaving prior to being seen by health care provider (principal)

== ENCOUNTER 2024-09-27 14:25 | Outpatient (CLI) | payer OTHER ==
[~2024-09-27] VITALS: Ht 162.6 cm; Wt 89.4 kg
[2024-09-27 14:44] VITALS: BP 133/73
[2024-09-27] MEDS ORDERED: UNIS25TA3 PO (14:49)
[2024-09-27 15:15] LABS: APPEARANCE, URINE CLOUDY (CLEAR); BACTERIA, URINE AUTO NEGATIVE (NEGATIVE); BILIRUBIN, URINE AUTO NEGATIVE (NEGATIVE); BLOOD, URINE BLOOD 3+ (NEGATIVE); COLOR, URINE AMBER (YELLOW); GLUCOSE, URINE (UA) AUTO NEGATIVE (NEGATIVE); KETONE, URINE AUTO 2+ mg/dL (NEGATIVE); LEUKOCYTE ESTERASE, URINE AUTO NEGATIVE (NEGATIVE); NITRITE, URINE AUTO NEGATIVE (NEGATIVE); PROTEIN, URINE AUTO 2+ mg/dL (NEGATIVE); RBC, URINE AUTO TNTC /HPF (0-3); SPECIFIC GRAVITY URINE AUTO 1.021 (1.002-1.035); SQUAMOUS EPITHELIAL CELL UR AU 0 /HPF (0-6); UROBILINOGEN, URINE AUTO 0.2 mg/dL (0.0-2.0); WBC, URINE AUTO 0 /HPF (0-3)
[2024-09-27] MEDS ORDERED: HOME MED LIST COMPLETE! XX SCH (15:35)
[2024-09-27] MEDS: LR 1,000 ML IV ONE (15:56)
[2024-09-27 16:12] LABS: HEMATOCRIT 35.9 % (36.0-47.0); HEMOGLOBIN 11.7 g/dl (12.0-15.5); MEAN CORPUSCULAR HEMOGLOBIN 30.7 pg (27.0-33.0); MEAN CORPUSCULAR HGB CONC 32.6 g/dl (32.0-36.5); MEAN CORPUSCULAR VOLUME 94.2 fl (80.0-96.0); PLATELET COUNT, AUTOMATED 181 10^3/uL (150-450); RED BLOOD COUNT 3.81 10^6/uL (4.00-5.40); WHITE BLOOD COUNT 12.9 10^3/uL (4.0-10.0)
[2024-09-27 16:42] LABS: ALBUMIN 2.7 G/DL (3.2-5.2); ALKALINE PHOSPHATASE 76 U/L (35-104); ALT/SGPT 11 U/L (7.0-40); AST/SGOT 13 U/L (<34); BILIRUBIN,TOTAL 0.2 MG/DL (0.3-1.2); BLOOD UREA NITROGEN 8 MG/DL (9-23); CALCIUM LEVEL 8.8 MG/DL (8.5-10.1); CARBON DIOXIDE LEVEL 21 MMOL/L (20-31); CHLORIDE LEVEL 109 MMOL/L (98-107); CREATININE FOR GFR 0.56 MG/DL (0.55-1.30); GLOMERULAR FILTRATION RATE > 60.0 (>60); GLUCOSE, FASTING 112 MG/DL (60-100); POTASSIUM SERUM 3.6 MMOL/L (3.5-5.1); SODIUM LEVEL 137 MMOL/L (136-145); TOTAL PROTEIN 5.9 G/DL (5.7-8.2)
[2024-09-27] MEDS: FLUCONAZOLE 50MG TABLET PO ONE (17:08)
[2024-09-27 17:24] LABS: APPEARANCE, URINE HAZY (CLEAR); BACTERIA, URINE AUTO NEGATIVE (NEGATIVE); BILIRUBIN, URINE AUTO NEGATIVE (NEGATIVE); BLOOD, URINE BLOOD 3+ (NEGATIVE); COLOR, URINE YELLOW (YELLOW); GLUCOSE, URINE (UA) AUTO NEGATIVE (NEGATIVE); KETONE, URINE AUTO NEGATIVE (NEGATIVE); LEUKOCYTE ESTERASE, URINE AUTO NEGATIVE (NEGATIVE); MUCUS, URINE SMALL (NEGATIVE); NITRITE, URINE AUTO NEGATIVE (NEGATIVE); PROTEIN, URINE AUTO 1+ mg/dL (NEGATIVE); RBC, URINE AUTO TNTC /HPF (0-3); SQUAMOUS EPITHELIAL CELL UR AU 2 /HPF (0-6); UROBILINOGEN, URINE AUTO 0.2 mg/dL (0.0-2.0); WBC, URINE AUTO 4 /HPF (0-3)
== END 2024-09-27 18:48 | disposition home or self-care (01) ==
LOC: M LDO 14:25
PROVIDERS: ATTEND Advanced Practice Midwife
DX: O26.852 Spotting complicating pregnancy, second trimester (principal); O26.892 Other specified pregnancy related conditions, second trimester; O23.592 Infection of other part of genital tract in pregnancy, second trimester; B37.9 Candidiasis, unspecified; R25.2 Cramp and spasm; Z3A.22 22 weeks gestation of pregnancy; Z87.442 Personal history of urinary calculi
CPT/HCPCS: 76775; 76815; 76817; 80053; 81001; 85027; 87086; G0463

== ENCOUNTER 2024-10-04 02:28 | Emergency (ER) | payer OTHER ==
[~2024-10-04] VITALS: Ht 162.6 cm; Wt 89.4 kg
[~2024-10-04 02:28] MED LIST changes: +UNIS25TA3 PO
[2024-10-04 02:32] VITALS: BP 120/69; TEMP 97.7; O2SAT 99
[2024-10-04] MEDS ORDERED: VITA50TA6 PO (03:04)
== END 2024-10-04 02:41 | disposition admitted as inpatient to this hospital (09) ==
LOC: M ED 02:28
DX: O99.891 Other specified diseases and conditions complicating pregnancy (principal); Z53.21 Procedure and treatment not carried out due to patient leaving prior to being seen by health care provider

== ENCOUNTER 2024-10-04 02:42 | Inpatient (IN) | payer OTHER ==
[~2024-10-04] VITALS: Ht 162.6 cm; Wt 89.1 kg
[2024-10-04 02:51] VITALS: BP 125/66; O2SAT 94
[2024-10-04] MEDS ORDERED: VITA50TA6 PO (03:04)
[2024-10-04] MEDS ORDERED: HOME MED LIST COMPLETE! XX SCH ×2 (03:05)
[2024-10-04 03:28] LABS: KETONE, URINE AUTO RFX NEGATIVE (NEGATIVE); LEUKOCYTE ESTERASE UR AUTO RFX NEGATIVE (NEGATIVE); MUCUS, URINE RFX SMALL (NEGATIVE); NITRITE, URINE AUTO RFX NEGATIVE (NEGATIVE)
[2024-10-04] MEDS: PERCOCET 5MG/325MG TAB PO ONE (04:37)
[2024-10-04] MEDS: PROMETHAZINE 25MG/ML 1ML VIAL IV ONE (04:41)
[2024-10-04] MEDS: BUTORPHANOL 2 MG/ML 1ML VIAL IV ONE ×2 (04:41→06:51)
[2024-10-04 04:44] VITALS: BP 111/65
[2024-10-04] MEDS: LR 1,000 ML IV SCH (04:46)
[2024-10-04 06:42] VITALS: BP 106/61
[2024-10-04] MEDS: ONDANSETRON 4MG 2ML VIAL IV PRN (09:47)
[2024-10-04] MEDS: MORPHINE 10 MG/ML 1ML VIAL IV PRN (09:50)
[2024-10-04 09:55] VITALS: BP 103/63
[2024-10-04 10:09] LABS: BASO % 0.1 % (0.0-1.0); EOS % 0.1 % (0.0-3.0); HEMATOCRIT 36.7 % (36.0-47.0); HEMOGLOBIN 11.9 g/dl (12.0-15.5); LYMPH % 6.8 % (24.0-44.0); MEAN CORPUSCULAR HEMOGLOBIN 30.7 pg (27.0-33.0); MEAN CORPUSCULAR HGB CONC 32.4 g/dl (32.0-36.5); MEAN CORPUSCULAR VOLUME 94.6 fl (80.0-96.0); MONO # 0.8 10^3/uL (0.0-0.8); NEUTROPHILS # 12.1 10^3/uL (1.5-8.5); NEUTROPHILS % 86.6 % (36.0-66.0); PLATELET COUNT, AUTOMATED 166 10^3/uL (150-450); RED BLOOD COUNT 3.88 10^6/uL (4.00-5.40); WHITE BLOOD COUNT 13.9 10^3/uL (4.0-10.0)
[2024-10-04] MEDS: TAMSULOSIN 0.4 MG CAP PO ONE (11:05)
[2024-10-04] MEDS: PERCOCET 5MG/325MG TAB PO PRN (12:12)
[2024-10-04 15:16] LABS: ALBUMIN 2.4 G/DL (3.2-5.2); ALKALINE PHOSPHATASE 73 U/L (35-104); ALT/SGPT < 9 U/L (7.0-40); AST/SGOT 10 U/L (<34); BILIRUBIN,TOTAL 0.3 MG/DL (0.3-1.2); BLOOD UREA NITROGEN 10 MG/DL (9-23); CALCIUM LEVEL 8.8 MG/DL (8.5-10.1); CARBON DIOXIDE LEVEL 24 MMOL/L (20-31); CHLORIDE LEVEL 107 MMOL/L (98-107); CREATININE FOR GFR 0.82 MG/DL (0.55-1.30); GLOMERULAR FILTRATION RATE > 60.0 (>60); GLUCOSE, FASTING 104 MG/DL (60-100); POTASSIUM SERUM 4.4 MMOL/L (3.5-5.1); SODIUM LEVEL 139 MMOL/L (136-145); TOTAL PROTEIN 5.5 G/DL (5.7-8.2)
[2024-10-04 16:41] VITALS: BP 116/62
[2024-10-04 19:28] VITALS: BP 103/56
[2024-10-04] MEDS ORDERED: diphenhydrAMINE 50MG/ML VIAL IV PRN (22:50)
[2024-10-05 00:01] VITALS: BP 128/57
[2024-10-05 06:00] VITALS: BP 96/55
[2024-10-05] MEDS ORDERED: propofoL 200 MG/20 ML VIAL As Ordered ONE (07:33)
[2024-10-05] MEDS ORDERED: LIDOCAINE 2% 100MG/5ML SDV (FOR ANES.) As Ordered ONE (07:34)
[2024-10-05] MEDS: ceFAZolin 2 GM/D5W 50 ML IV BAG As Ordered ONE (08:08)
[2024-10-05] MEDS ORDERED: ONDANSETRON 4MG 2ML VIAL IV PRN (08:10)
[2024-10-05] MEDS ORDERED: fentaNYL 100 MCG/2 ML INJECTION IV PRN (08:10)
[2024-10-05] MEDS: ISOVUE-300 61% 100ML VIAL As Ordered ONE (08:19)
[2024-10-05] MEDS: LIDOCAINE 2% 5ML JELLY UROJET As Ordered ONE (08:40)
[2024-10-05 08:45] VITALS: TEMP 98.7; O2SAT 97
[2024-10-05 09:23] VITALS: BP 113/65
[2024-10-05 09:58] VITALS: BP 114/59
[2024-10-05] MEDS: ACETAMINOPHEN 500 MG TAB PO PRN (10:51)
== END 2024-10-05 15:00 | disposition home or self-care (01) | DRG 566 ==
LOC: M LDO 02:42 → M LDI 15:52
PROVIDERS: ADMIT Advanced Practice Midwife; ATTEND Obstetrics & Gynecology
PROC: 0T768DZ Dilation of Right Ureter with Intraluminal Device, Via Natural or Artificial Opening Endoscopic (ICD-10-PCS; principal; 2024-10-05 08:00)
DX: O26.832 Pregnancy related renal disease, second trimester (principal); N13.1 Hydronephrosis with ureteral stricture, not elsewhere classified; Z3A.23 23 weeks gestation of pregnancy

== ENCOUNTER 2024-10-12 05:16 | Outpatient (CLI) | payer OTHER ==
[~2024-10-12] VITALS: Ht 162.6 cm; Wt 88.3 kg
[~2024-10-12 05:16] MED LIST changes: +VITA50TA6 PO
[2024-10-12 05:39] VITALS: BP 115/68
[2024-10-12] MEDS: PERCOCET 5MG/325MG TAB PO ONE (06:04)
[2024-10-12 07:59] LABS: KETONE, URINE AUTO RFX NEGATIVE (NEGATIVE)
[2024-10-12] MEDS ORDERED: HOME MED LIST COMPLETE! XX SCH (08:00)
[2024-10-12 08:04] LABS: LEUKOCYTE ESTERASE UR AUTO RFX 1+ (NEGATIVE)
[2024-10-12 12:25] LABS: HEMATOCRIT 36.5 % (36.0-47.0); HEMOGLOBIN 12.2 g/dl (12.0-15.5); MEAN CORPUSCULAR HGB CONC 33.4 g/dl (32.0-36.5); MEAN CORPUSCULAR VOLUME 92.9 fl (80.0-96.0); PLATELET COUNT, AUTOMATED 215 10^3/uL (150-450); RED BLOOD COUNT 3.93 10^6/uL (4.00-5.40); WHITE BLOOD COUNT 12.4 10^3/uL (4.0-10.0)
[2024-10-12] MEDS: LR 1,000 ML IV SCH (12:27)
[2024-10-12 12:29] VITALS: BP 114/64
[2024-10-12 12:44] LABS: ALBUMIN 2.7 G/DL (3.2-5.2); BLOOD UREA NITROGEN 8 MG/DL (9-23); CARBON DIOXIDE LEVEL 21 MMOL/L (20-31); CHLORIDE LEVEL 105 MMOL/L (98-107); CREATININE FOR GFR 0.51 MG/DL (0.55-1.30); GLOMERULAR FILTRATION RATE > 60.0 (>60); GLUCOSE, FASTING 90 MG/DL (60-100); POTASSIUM SERUM 4.3 MMOL/L (3.5-5.1); SODIUM LEVEL 138 MMOL/L (136-145)
[2024-10-12 15:23] VITALS: BP 107/59
[2024-10-12] MEDS ORDERED: ONDA-282 PO (17:32)
[2024-10-12 18:08] LABS: HEPATITIS B SURFACE ANTIGEN NEGATIVE (NEGATIVE)
[2024-10-12 18:21] LABS: HIV 1&2 SCREEN NEGATIVE (NEGATIVE)
[2024-10-12 18:29] LABS: HEPATITIS C VIRUS ABY INDEX < 0.02 INDEX (<0.8)
[2024-10-12 18:49] LABS: GC DNA AMPLIFICATION NEGATIVE (NEGATIVE)
== END 2024-10-12 17:15 | disposition home or self-care (01) ==
LOC: M LDO 05:16
PROVIDERS: ATTEND Obstetrics & Gynecology
DX: O26.832 Pregnancy related renal disease, second trimester (principal); O09.32 Supervision of pregnancy with insufficient antenatal care, second trimester; N13.39 Other hydronephrosis; Z87.442 Personal history of urinary calculi; Z3A.24 24 weeks gestation of pregnancy
CPT/HCPCS: 36415; 59025; 76775; 80069; 81001; 85027; 86762; 86780; 86803; 86850; 86900; 86901; 87086; 87340; 87389; 87810; 87850; G0463

== ENCOUNTER 2024-11-17 16:28 | Observation (INO) | payer MEDICAID, OTHER ==
[~2024-11-17] VITALS: Ht 162.6 cm; Wt 90.0 kg
[~2024-11-17 16:28] MED LIST changes: +ONDA-282 PO
[2024-11-17] MEDS ORDERED: OXYB5TAB14 PO (16:42)
[2024-11-17] MEDS: PERCOCET 5MG/325MG TAB PO ONE (17:05)
[2024-11-17 17:26] LABS: BASO % 0.2 % (0.0-1.0); EOS # 0.2 10^3/uL (0.0-0.5); EOS % 2.2 % (0.0-3.0); HEMATOCRIT 35.2 % (36.0-47.0); HEMOGLOBIN 11.3 g/dl (12.0-15.5); LYMPH # 1.1 10^3/uL (1.5-5.0); LYMPH % 10.6 % (24.0-44.0); MEAN CORPUSCULAR HEMOGLOBIN 30.1 pg (27.0-33.0); MEAN CORPUSCULAR HGB CONC 32.1 g/dl (32.0-36.5); MEAN CORPUSCULAR VOLUME 93.9 fl (80.0-96.0); MONO # 0.8 10^3/uL (0.0-0.8); MONO % 7.9 % (2.0-8.0); NEUTROPHILS # 8.3 10^3/uL (1.5-8.5); NEUTROPHILS % 78.5 % (36.0-66.0); PLATELET COUNT, AUTOMATED 193 10^3/uL (150-450); RED BLOOD COUNT 3.75 10^6/uL (4.00-5.40); WHITE BLOOD COUNT 10.5 10^3/uL (4.0-10.0)
[2024-11-17 17:51] LABS: BLOOD UREA NITROGEN 7 MG/DL (9-23); CALCIUM LEVEL 8.8 MG/DL (8.5-10.1); CARBON DIOXIDE LEVEL 22 MMOL/L (20-31); CHLORIDE LEVEL 107 MMOL/L (98-107); CREATININE FOR GFR 0.49 MG/DL (0.55-1.30); GLOMERULAR FILTRATION RATE > 60.0 (>60); GLUCOSE, FASTING 106 MG/DL (60-100); POTASSIUM SERUM 4.2 MMOL/L (3.5-5.1); SODIUM LEVEL 138 MMOL/L (136-145)
[2024-11-17] MEDS: LR 1,000 ML IV SCH (19:44)
[2024-11-17] MEDS ORDERED: AZO-95TA3 PO (19:48)
[2024-11-17] MEDS ORDERED: HOME MED LIST COMPLETE! XX SCH (19:50)
[2024-11-17] MEDS: PERCOCET 5MG/325MG TAB PO PRN (20:13)
[2024-11-17 21:00] VITALS: BP 117/61; TEMP 98.4; O2SAT 95
[2024-11-17] MEDS: ONDANSETRON 4MG 2ML VIAL IV PRN (21:18)
[2024-11-17] MEDS: MORPHINE 4 MG/ML 1ML VIAL IV ONE (21:53)
[2024-11-18] VITALS (7 sets, daily range): BP systolic 107–122; BP diastolic 53–71; TEMP 96.6–99.4; O2SAT 94–98
[2024-11-18] MEDS: PERCOCET 5MG/325MG TAB PO PRN (02:20)
[2024-11-18] MEDS ORDERED: ONDANSETRON 4MG 2ML VIAL As Ordered ONE (13:23)
[2024-11-18] MEDS ORDERED: LIDOCAINE 2% 100MG/5ML SDV (FOR ANES.) As Ordered ONE (13:23)
[2024-11-18] MEDS ORDERED: propofoL 200 MG/20 ML VIAL As Ordered ONE (13:23)
[2024-11-18] MEDS ORDERED: fentaNYL 100 MCG/2 ML INJECTION As Ordered ONE (13:26)
[2024-11-18] MEDS ORDERED: MIDAZOLAM INJ 2MG/2ML VIAL As Ordered ONE (13:26)
[2024-11-18] MEDS: ceFAZolin 2 GM/D5W 50 ML IV BAG As Ordered ONE (13:47)
[2024-11-18] MEDS ORDERED: ONDANSETRON 4MG 2ML VIAL IV PRN (14:45)
[2024-11-18] MEDS ORDERED: fentaNYL 100 MCG/2 ML INJECTION IV PRN (14:45)
[2024-11-18] MEDS: oxyCODONE 5MG TAB PO PRN (14:54)
[2024-11-18] MEDS: LR 1,000 ML IV SCH (17:56)
[2024-11-18] MEDS: PHENAZOPYRIDINE 100 MG TAB PO SCH ×2 (18:07→22:40)
[2024-11-19] VITALS: BP 128/58; TEMP 98; O2SAT 94
[2024-11-19 04:00] VITALS: BP 118/60; TEMP 97.7; O2SAT 95
[2024-11-19 08:09] VITALS: BP 107/59; TEMP 97.6; O2SAT 95
[2024-11-19 12:20] VITALS: BP 102/62; TEMP 97.9; O2SAT 95
[2024-11-19] MEDS: CALCIUM CARBONATE 500 MG CHEW U/D PO ONE (13:08)
== END 2024-11-19 17:55 | disposition home or self-care (01) ==
LOC: M ED 16:28 → EDBD 16:28 → M ED INP 16:29 → M PED 21:00
PROVIDERS: ADMIT Advanced Practice Midwife; ATTEND Advanced Practice Midwife
DX: O99.891 Other specified diseases and conditions complicating pregnancy (principal); N20.1 Calculus of ureter; Z96.0 Presence of urogenital implants; R23.4 Changes in skin texture; O09.33 Supervision of pregnancy with insufficient antenatal care, third trimester; Z3A.29 29 weeks gestation of pregnancy
CPT/HCPCS: 52315; 59025; 80048; 85025; 96374; 96375; 96376; 99285; C1769; J0690; J1100; J2250; J2405; J3010

== ENCOUNTER 2024-11-23 02:25 | Inpatient (IN) | payer OTHER ==
[~2024-11-23] VITALS: Ht 162.6 cm; Wt 86.4 kg
[2024-11-23] VITALS (18 sets, daily range): BP systolic 91–112; BP diastolic 50–65; TEMP 97.6; O2SAT 95–96
[~2024-11-23 02:25] MED LIST changes: +AZO-95TA3 PO; +OXYB5TAB14 PO
[2024-11-23] MEDS: NS (Normal Saline) 0.9% 1,000 ML IV ONE ×3 (03:31→06:34)
[2024-11-23 03:36] LABS: BASO % 0.1 % (0.0-1.0); EOS % 0.2 % (0.0-3.0); HEMATOCRIT 32.9 % (36.0-47.0); HEMOGLOBIN 10.7 g/dl (12.0-15.5); LYMPH % 7.7 % (24.0-44.0); MEAN CORPUSCULAR HEMOGLOBIN 30.2 pg (27.0-33.0); MEAN CORPUSCULAR HGB CONC 32.5 g/dl (32.0-36.5); MEAN CORPUSCULAR VOLUME 92.9 fl (80.0-96.0); MONO # 1.5 10^3/uL (0.0-0.8); MONO % 11.1 % (2.0-8.0); NEUTROPHILS # 10.8 10^3/uL (1.5-8.5); NEUTROPHILS % 80.4 % (36.0-66.0); PLATELET COUNT, AUTOMATED 181 10^3/uL (150-450); RED BLOOD COUNT 3.54 10^6/uL (4.00-5.40); WHITE BLOOD COUNT 13.4 10^3/uL (4.0-10.0)
[2024-11-23 04:05] LABS: LIPASE 25 U/L (12-53)
[2024-11-23 04:06] LABS: KETONE, URINE AUTO RFX 1+ mg/dL (NEGATIVE); LEUKOCYTE ESTERASE UR AUTO RFX 2+ (NEGATIVE); MUCUS, URINE RFX SMALL (NEGATIVE); NITRITE, URINE AUTO RFX NEGATIVE (NEGATIVE); RBC, URINE AUTO RFX 39 /HPF (0-3); SQUAM EPITHELIAL CELL UR AURFX 2 /HPF (0-6); WBC, URINE AUTO RFX 67 /HPF (0-3)
[2024-11-23 04:13] LABS: PROCALCITONIN 0.19 ng/ml
[2024-11-23] MEDS: cefTRIAXone SOD 2 GM in DEXTROSE 5% (D5W) ADV/MINI-BAG 50 ML IV ONE (04:33)
[2024-11-23 04:59] LABS: ALBUMIN 2.3 G/DL (3.2-5.2); ALKALINE PHOSPHATASE 109 U/L (35-104); ALT/SGPT 96 U/L (7.0-40); AST/SGOT 34 U/L (<34); BILIRUBIN,DIRECT 0.4 MG/DL (<0.4); BLOOD UREA NITROGEN < 5 MG/DL (9-23); CALCIUM LEVEL 8.7 MG/DL (8.5-10.1); CARBON DIOXIDE LEVEL 18 MMOL/L (20-31); CHLORIDE LEVEL 105 MMOL/L (98-107); CREATININE FOR GFR 0.49 MG/DL (0.55-1.30); GLOMERULAR FILTRATION RATE > 60.0 (>60); GLUCOSE, FASTING 114 MG/DL (60-100); POTASSIUM SERUM 3.9 MMOL/L (3.5-5.1); SODIUM LEVEL 136 MMOL/L (136-145); TOTAL PROTEIN 5.9 G/DL (5.7-8.2)
[2024-11-23] MEDS ORDERED: ACETAMINOPHEN 325 MG TAB PO PRN (06:20)
[2024-11-23] MEDS ORDERED: HOME MED LIST COMPLETE! XX SCH ×2 (07:40→08:45)
[2024-11-23] MEDS: ONDANSETRON 4MG 2ML VIAL IV PRN (12:33)
[2024-11-24] VITALS (16 sets, daily range): BP systolic 94–125; BP diastolic 49–73; O2SAT 95–97
[2024-11-24] MEDS: cefTRIAXone SOD 2 GM in DEXTROSE 5% (D5W) ADV/MINI-BAG 50 ML IV SCH (04:30)
[2024-11-24] MEDS ORDERED: cefTRIAXone SOD 2 GM in DEXTROSE 5% (D5W) ADV/MINI-BAG 50 ML IV SCH (05:00)
[2024-11-25 02:04] VITALS: BP 90/51; O2SAT 95
[2024-11-25 05:41] LABS: HEMATOCRIT 29.1 % (36.0-47.0); HEMOGLOBIN 9.1 g/dl (12.0-15.5); MEAN CORPUSCULAR HEMOGLOBIN 29.4 pg (27.0-33.0); MEAN CORPUSCULAR HGB CONC 31.3 g/dl (32.0-36.5); MEAN CORPUSCULAR VOLUME 93.9 fl (80.0-96.0); PLATELET COUNT, AUTOMATED 189 10^3/uL (150-450); WHITE BLOOD COUNT 6.5 10^3/uL (4.0-10.0)
[2024-11-25 05:55] VITALS: BP 98/60; O2SAT 98
[2024-11-25] MEDS ORDERED: BACT400T PO (10:38)
[2024-11-25] MEDS: BACTRIM 160MG/800MG DS TAB PO SCH (11:31)
== END 2024-11-25 12:05 | disposition home or self-care (01) | DRG 566 ==
LOC: M ED 02:25 → M LDI 08:05 → M OBS 11-24 18:33
PROVIDERS: ADMIT Obstetrics & Gynecology; ATTEND Obstetrics & Gynecology
DX: O23.03 Infections of kidney in pregnancy, third trimester (principal); Z3A.30 30 weeks gestation of pregnancy; N13.6 Pyonephrosis

== ENCOUNTER → 2025-01-27 13:23 | Emergency (ER) | payer MEDICAID, OTHER ==
[~2025-01-27 13:23] MED LIST changes: +BACT400T PO; +OMEP10CASR PO
== END | disposition admitted as inpatient to this hospital (09) ==
LOC: M ED 13:23
DX: Z53.21 Procedure and treatment not carried out due to patient leaving prior to being seen by health care provider (principal)

== ENCOUNTER 2025-01-27 13:54 | Inpatient (IN) | payer OTHER, MEDICAID ==
[~2025-01-27] VITALS: Ht 162.6 cm; Wt 98.8 kg
[2025-01-27] VITALS (25 sets, daily range): BP systolic 114–154; BP diastolic 59–114; O2SAT 98
[~2025-01-27 13:54] MED LIST changes: -OMEP10CASR PO
[2025-01-27] MEDS ORDERED: OMEP10CASR PO (14:19)
[2025-01-27] MEDS ORDERED: HOME MED LIST COMPLETE! XX SCH (14:20)
[2025-01-27 14:29] LABS: HEMATOCRIT 40.2 % (36.0-47.0); HEMOGLOBIN 12.6 g/dl (12.0-15.5); MEAN CORPUSCULAR HEMOGLOBIN 27.5 pg (27.0-33.0); MEAN CORPUSCULAR HGB CONC 31.3 g/dl (32.0-36.5); MEAN CORPUSCULAR VOLUME 87.6 fl (80.0-96.0); PLATELET COUNT, AUTOMATED 228 10^3/uL (150-450); RED BLOOD COUNT 4.59 10^6/uL (4.00-5.40); WHITE BLOOD COUNT 10.2 10^3/uL (4.0-10.0)
[2025-01-27] MEDS: ACETAMINOPHEN 500 MG TAB PO PRN (14:50)
[2025-01-27] MEDS ORDERED: LR 500 ML IV PRN (15:15)
[2025-01-27] MEDS ORDERED: NALOXONE INJ 0.4MG/1ML VIAL IV PRN (15:15)
[2025-01-27] MEDS ORDERED: EPIDURAL/PCA KEYS XX PRN (15:15)
[2025-01-27] MEDS ORDERED: ePHEDrine SULFATE 25 MG/5 ML(5MG/ML) SYRINGE IVP PRN (15:15)
[2025-01-27] MEDS ORDERED: FENTANYL 2MCG/ML ROPIVACAINE 0.2% IN 0.9% NACL 100ML IVBAG As Ordered ONE (15:18)
[2025-01-27 15:24] LABS: HIV 1&2 SCREEN NEGATIVE (NEGATIVE)
[2025-01-27 15:32] LABS: HEPATITIS C VIRUS ABY INDEX 0.02 INDEX (<0.8)
[2025-01-27] MEDS: FENTANYL/ROPIVACAINE/NACL BAG 100 ML EPIDURAL SCH (16:15)
[2025-01-27] MEDS: LR 1,000 ML IV SCH (16:15)
[2025-01-27] MEDS: PENICILLIN G POTASSIUM 5 MU IV 5 MU in DEXTROSE 5% (D5W) MINI-BAG PLU 100 ML IV STA (16:34)
[2025-01-27] MEDS ORDERED: OXYTOCIN 30UNITS IN 0.9% NaCl 500ML IV BAG As Ordered ONE (18:13)
[2025-01-27] MEDS ORDERED: METHYLERGONOVINE MALEATE 0.2 MG TAB PO PRN (18:30)
[2025-01-27] MEDS ORDERED: DIBUCAINE 1% OINTMENT 30GM TOP PRN (18:30)
[2025-01-27] MEDS ORDERED: ACETAMINOPHEN 325 MG TAB PO PRN (18:30)
[2025-01-27] MEDS ORDERED: DOCUSATE SODIUM 100MG CAPSULE PO PRN (18:30)
[2025-01-27] MEDS: OXYTOCIN DRIP 30 UNITS in IV 1 EA IV SCH (18:30)
[2025-01-27] MEDS ORDERED: IBUPROFEN 800 MG TAB PO PRN (18:30)
[2025-01-27] MEDS ORDERED: ANUSOL HC CREAM 30GM TOP PRN (18:30)
[2025-01-27] MEDS ORDERED: MOM 30ML SUSPENSION UDC PO PRN (18:30)
[2025-01-27] MEDS ORDERED: PEN G POT 3,000,000 UNIT/50 ML 3,000,000 UNIT in IV 1 EA IV SCH (20:00)
[2025-01-28 05:46] VITALS: BP 119/66; O2SAT 98
[2025-01-28] MEDS: RHOGAM 300MCG (1500IU) INJ IM SCH (07:23)
[2025-01-28] MEDS: PRENATAL VITAMINS CHEWABLE TABLET PO SCH (08:40)
[2025-01-28 18:00] VITALS: BP 129/75; O2SAT 96
[2025-01-29 06:00] VITALS: BP 134/78; O2SAT 96
[2025-01-29] MEDS: CALCIUM CARBONATE 500 MG CHEW U/D PO PRN (07:40)
[2025-01-29] MEDS ORDERED: MEASLES,MUMPS,RUBELLA VACCINE INJ (MMR-II) SC.IMMUN ONE (09:00)
[2025-01-29] MEDS: IBUPROFEN 600MG TAB PO PRN (11:37)
== END 2025-01-29 14:50 | disposition home or self-care (01) | DRG 560 ==
LOC: M LDO 13:54 → M LDI 14:30 → M OBS 20:42
PROVIDERS: ADMIT Obstetrics & Gynecology; ATTEND Obstetrics & Gynecology
PROC: 10E0XZZ Delivery of Products of Conception, External Approach (ICD-10-PCS; principal; 2025-01-27)
PROC: 0HQ9XZZ Repair Perineum Skin, External Approach (ICD-10-PCS; 2025-01-27)
DX: O70.0 First degree perineal laceration during delivery (principal); Z37.0 Single live birth; Z3A.39 39 weeks gestation of pregnancy

== ENCOUNTER 2025-06-11 01:40 | Observation (INO) | payer MEDICAID, OTHER ==
[~2025-06-11] VITALS: Ht 165.1 cm; Wt 90.9 kg
[2025-06-11] VITALS (7 sets, daily range): BP systolic 101–114; BP diastolic 55–70; TEMP 96.8–97.4; O2SAT 95–98
[~2025-06-11 01:40] MED LIST changes: -FLOM0.4C39 PO; -IBUP1TAB6 PO; +OMEP10CASR PO; +SFHIBU600 PO; +TAMS-18 PO
[2025-06-11] MEDS ORDERED: OXYC1TAB23 PO (01:48)
[2025-06-11] MEDS ORDERED: IBUP200C29 PO (01:48)
[2025-06-11 02:28] LABS: KETONE, URINE AUTO RFX NEGATIVE (NEGATIVE); MUCUS, URINE RFX SMALL (NEGATIVE); NITRITE, URINE AUTO RFX NEGATIVE (NEGATIVE); RBC, URINE AUTO RFX 15 /HPF (0-3); SQUAM EPITHELIAL CELL UR AURFX 3 /HPF (0-6)
[2025-06-11 02:29] LABS: LEUKOCYTE ESTERASE UR AUTO RFX 2+ (NEGATIVE); WBC, URINE AUTO RFX 55 /HPF (0-3)
[2025-06-11] MEDS: MORPHINE 4 MG/ML 1 ML VIAL IV ONE (04:15)
[2025-06-11] MEDS: ONDANSETRON 4MG 2ML VIAL IV ONE (04:15)
[2025-06-11 04:17] LABS: URINE PREG TEST NEGATIVE (NEGATIVE)
[2025-06-11 04:26] LABS: BASO # 0.0 10^3/uL (0.0-0.2); BASO % 0.2 % (0.0-1.0); EOS # 0.0 10^3/uL (0.0-0.5); EOS % 0.2 % (0.0-3.0); LYMPH # 1.9 10^3/uL (1.5-5.0); LYMPH % 15.0 % (24.0-44.0); MONO # 1.0 10^3/uL (0.0-0.8); MONO % 8.3 % (2.0-8.0); NEUTROPHILS # 9.4 10^3/uL (1.5-8.5); NEUTROPHILS % 76.0 % (36.0-66.0); PLATELET COUNT, AUTOMATED 225 10^3/uL (150-450)
[2025-06-11 04:52] LABS: CALCIUM LEVEL 9.8 MG/DL (8.5-10.1); CARBON DIOXIDE LEVEL 24 MMOL/L (20-31); CHLORIDE LEVEL 104 MMOL/L (98-107); CREATININE FOR GFR 0.84 MG/DL (0.55-1.30); GLOMERULAR FILTRATION RATE > 90.0 (>60); POTASSIUM SERUM 4.1 MMOL/L (3.5-5.1); SODIUM LEVEL 141 MMOL/L (136-145)
[2025-06-11] MEDS ORDERED: HYDROMORPHONE HCL 0.5 MG/0.5 ML SYRINGE IV PRN ×4 (05:35→13:35)
[2025-06-11] MEDS ORDERED: ACETAMINOPHEN 325 MG TAB PO PRN (05:40)
[2025-06-11 06:05] LABS: ALT/SGPT 22 U/L (7.0-40); AST/SGOT 23 U/L (<34)
[2025-06-11] MEDS: LR 1,000 ML IV SCH (07:06)
[2025-06-11] MEDS: HYDROMORPHONE HCL 0.5 MG/0.5 ML SYRINGE IV PRN (07:06)
[2025-06-11] MEDS: LevoFLOXacin IV 750 MG in IV 1 EA IV SCH (07:53)
[2025-06-11] MEDS ORDERED: HOME MED LIST COMPLETE! XX SCH (08:00)
[2025-06-11 08:43] LABS: INR 0.95
[2025-06-11] MEDS: KETOROLAC 30 MG/ML 1 ML VIAL IV PRN (08:45)
[2025-06-11] MEDS: ONDANSETRON 4MG 2ML VIAL IV PRN (09:05)
[2025-06-11] MEDS ORDERED: LIDOCAINE 2% 100 MG/5 ML SDV (FOR ANES.) As Ordered ONE (13:08)
[2025-06-11] MEDS ORDERED: MIDAZOLAM INJ 2 MG/2 ML VIAL As Ordered ONE (13:08)
[2025-06-11] MEDS ORDERED: ONDANSETRON 4MG 2ML VIAL As Ordered ONE (13:09)
[2025-06-11] MEDS ORDERED: dexAMETHasone 4 MG/ML 1 ML VIAL As Ordered ONE (13:21)
[2025-06-11] MEDS ORDERED: ACETAMINOPHEN 1000MG/100ML IV BAG As Ordered ONE (13:21)
[2025-06-11] MEDS ORDERED: KETOROLAC 30 MG/ML 1 ML VIAL As Ordered ONE (13:21)
[2025-06-11] MEDS: LIDOCAINE 2% 5 ML JELLY UROJET As Ordered ONE (13:25)
[2025-06-11] MEDS: ISOVUE-300 61% 100 ML VIAL As Ordered ONE (13:25)
[2025-06-11] MEDS ORDERED: MORPHINE 2 MG/ML 1 ML VIAL IV PRN (13:35)
== END 2025-06-11 17:54 | disposition home or self-care (01) ==
LOC: M ED 01:40 → M ED INP 01:41 → M PED 08:31
PROVIDERS: ADMIT Student in an Organized Health Care Education/Training Program; ATTEND Internal Medicine
DX: N13.1 Hydronephrosis with ureteral stricture, not elsewhere classified (principal); R11.2 Nausea with vomiting, unspecified; R10.31 Right lower quadrant pain; Z87.442 Personal history of urinary calculi; Z90.89 Acquired absence of other organs; Z82.49 Family history of ischemic heart disease and other diseases of the circulatory system; Z80.9 Family history of malignant neoplasm, unspecified; Z79.899 Other long term (current) drug therapy
CPT/HCPCS: 36415; 52332; 74176; 74420; 80048; 80076; 81001; 83605; 84703; 85025; 85610; 87086; 96374; 96375; 96376; 99284; C1769; C1894; C2617; J0131; J1100; J1171; J1885; J1956; J2250; J2405; J2765; J3010; Q9967

== ENCOUNTER 2025-06-16 09:38 | Day surgery (SDC) | payer MEDICAID, OTHER ==
[~2025-06-16] VITALS: Ht 165.1 cm; Wt 88.8 kg
[~2025-06-16 09:38] MED LIST changes: +IBUP200C29 PO
[2025-06-16] MEDS ORDERED: KETAMINE HCL 200 MG/20 ML VIAL As Ordered ONE (10:04)
[2025-06-16] MEDS ORDERED: MIDAZOLAM INJ 2 MG/2 ML VIAL As Ordered ONE (10:04)
[2025-06-16] MEDS ORDERED: LIDOCAINE 2% 100 MG/5 ML SDV (FOR ANES.) As Ordered ONE (10:04)
[2025-06-16] MEDS ORDERED: GLYCOPYRROLATE INJ 0.2 MG/ML 2 ML VIAL As Ordered ONE (10:04)
[2025-06-16] MEDS ORDERED: ACETAMINOPHEN 1000MG/100ML IV BAG As Ordered ONE (10:04)
[2025-06-16] MEDS ORDERED: ONDANSETRON 4MG 2ML VIAL As Ordered ONE (10:10)
[2025-06-16] MEDS ORDERED: OXYB5TAB14 PO (10:50)
[2025-06-16] MEDS ORDERED: CEPH25SS PO (10:51)
[2025-06-16 12:30] VITALS: BP 118/57; TEMP 97; O2SAT 97
== END 2025-06-16 12:39 | disposition home or self-care (01) ==
LOC: M SDC 09:38
PROVIDERS: ATTEND Urology
DX: N20.1 Calculus of ureter (principal)
CPT/HCPCS: 50590; 81025; J0131; J0690; J1596; J2250; J2405; J3010

== ENCOUNTER → 2025-06-22 | Outpatient (CLI) | payer OTHER ==
[~2025-06-22] MED LIST changes: +CEPH25SS PO
== END ==
LOC: M LAB 17:13
PROVIDERS: ATTEND Urology
DX: N20.0 Calculus of kidney (principal); Z96.0 Presence of urogenital implants